=== PATIENT | female | born 1930 | race Caucasian/White ===

== ENCOUNTER 2016-10-09 19:32 | Inpatient (IN) | payer MEDICARE ==
[~2016-10-09 19:32] MED LIST: ASPIRIN CHEWABL81 MG PO; AZITHROMYCIN 2250 MG PO; COREG 6.25MG6.25 MG PO; DEMADEX20 MG PO; DUONEB 2.5-0.5M1 AMP INH; FEOSOL325 MG PO; HYDRALAZINE25 MG PO; ISOSORBIDE MONO60 M1 PO; LANTUS **100 UNITS/ SQ; MELATONIN5 M2 PO; NOVOLOG VI100 UNIT/1 SQ; PHOSLO667 MG PO; PLAVIX75 MG PO; PRAVACHOL20 MG PO; REMERON15 MG PO; VITAMIN B-121000 MC1 PO; VITAMIN D50000 UNIT PO
[2016-10-09 20:21] LABS: BASOPHIL 0.5 % (0-2); EOSINOPHIL 3.9 % (0-7); HCT 35.4 % (37.0-47.0); HGB 11.3 g/dl (12.5-16.0); LYMPHOCYTE 22.4 % (15-48); MCH 29.4 pg (25.0-31.0); MCHC 31.9 g/dL (32.0-36.0); MCV 92.2 fL (78.0-100.0); MONOCYTE 7.4 % (0-12); MPV 11.9 fL (6.0-9.5); NEUTROPHIL 65.8 % (41-80); PLT 178 K/uL (150-400); RBC 3.84 M/uL (4.20-5.40); RDW 12.5 % (11.5-14.0)
[2016-10-09 20:39] LABS: BILIRUBIN - TOTAL 0.3 mg/dL (0.1-1.0); CREATININE 2.1 mg/dL (0.5-1.0); GLOBULIN (CALCULATION) 3.6 g/dL (2.2-4.2); TOTAL PROTEIN 7.6 g/dL (6.4-8.3)
[2016-10-09 22:18] LABS: BILIRUBIN NEGATIVE (NEGATIVE); BLOOD TRACE-INTACT Ery/uL (NEGATIVE); CLARITY HAZY (CLEAR); COLOR YELLOW (YELLOW); GLUCOSE (U) NORMAL (NORMAL); KETONE (U) NEGATIVE (NEGATIVE); LEUKOCYTES NEGATIVE Leu/uL (NEGATIVE); NITRITE NEGATIVE (NEGATIVE); PROTEIN 2+ mg/dL (NEGATIVE); SPECIFIC GRAVITY 1.025 (1.001-1.030); UROBILINOGEN 0.2 mg/dL (0.2-1.0)
[2016-10-09 22:27] LABS: BACTERIA 3+; URINARY RBC RARE
[2016-10-09 23:58] LABS: TROPONIN T 0.023 ng/mL
[2016-10-10 07:11] LABS: BASOPHIL 0.3 % (0-2); EOSINOPHIL 0.5 % (0-7); HCT 31.3 % (37.0-47.0); LYMPHOCYTE 16.2 % (15-48); MCH 29.3 pg (25.0-31.0); MCHC 31.9 g/dL (32.0-36.0); MCV 91.8 fL (78.0-100.0); MONOCYTE 10.1 % (0-12); MPV 11.2 fL (6.0-9.5); NEUTROPHIL 72.9 % (41-80); PLT 160 K/uL (150-400); RBC 3.41 M/uL (4.20-5.40); RDW 12.4 % (11.5-14.0); WBC 6.1 K/uL (4.0-10.5)
[2016-10-10 07:42] LABS: CKMB 3.94 ng/mL (0.97-4.94); TROPONIN T 0.074 ng/mL
[2016-10-10 07:44] LABS: CREATININE 2.2 mg/dL (0.5-1.0); MAGNESIUM 1.78 mg/dL (1.40-2.10); POTASSIUM 4.5 mmol/L (3.5-5.1)
[2016-10-10 14:11] LABS: CKMB 4.22 ng/mL (0.97-4.94)
[2016-10-10 14:25] LABS: TROPONIN T 0.126 ng/mL
[2016-10-11 02:18] LABS: BASOPHIL 0.5 % (0-2); EOSINOPHIL 0 % (0-7); HCT 29.1 % (37.0-47.0); HGB 9.3 g/dl (12.5-16.0); LYMPHOCYTE 15.9 % (15-48); MCH 29.4 pg (25.0-31.0); MCV 92.1 fL (78.0-100.0); MONOCYTE 2.1 % (0-12); MPV 11.5 fL (6.0-9.5); NEUTROPHIL 81.5 % (41-80); PLT 156 K/uL (150-400); RBC 3.16 M/uL (4.20-5.40); RDW 12.4 % (11.5-14.0)
[2016-10-11 02:22] LABS: WBC 3.8 K/uL (4.0-10.5)
[2016-10-11 02:37] LABS: CREATININE 2.6 mg/dL (0.5-1.0); MAGNESIUM 1.66 mg/dL (1.40-2.10); POTASSIUM 4.6 mmol/L (3.5-5.1)
[2016-10-12 04:10] LABS: BASOPHIL 0.2 % (0-2); EOSINOPHIL 0 % (0-7); HCT 29.2 % (37.0-47.0); HGB 9.2 g/dl (12.5-16.0); MCH 29.5 pg (25.0-31.0); MCHC 31.5 g/dL (32.0-36.0); MCV 93.6 fL (78.0-100.0); MONOCYTE 6.2 % (0-12); MPV 11.3 fL (6.0-9.5); NEUTROPHIL 84.6 % (41-80); PLT 156 K/uL (150-400); RBC 3.12 M/uL (4.20-5.40); RDW 12.7 % (11.5-14.0); WBC 5.8 K/uL (4.0-10.5)
[2016-10-12 04:31] LABS: MAGNESIUM 1.97 mg/dL (1.40-2.10); POTASSIUM 4.6 mmol/L (3.5-5.1)
[2016-10-12] MEDS ORDERED: PREDNISONE 10MG10 MG PO (12:31)
[2016-10-12] MEDS ORDERED: CALCIUM600 MG PO (12:31)
[2016-10-12] MEDS ORDERED: CEFDINIR300 MG PO (12:32)
[2016-10-12] MEDS ORDERED: MUCINEX 600MG600 MG PO (12:32)
== END 2016-10-12 13:02 | disposition home health service (06) | DRG 280 ==
LOC: FER 19:32 → FMS 10-10 01:25 → FTCU 10-10 15:15
PROVIDERS: Internal Medicine; ADMIT Internal Medicine
DX: I13.0 Hypertensive heart and chronic kidney disease with heart failure and stage 1 through stage 4 chronic kidney disease, or unspecified chronic kidney disease (principal); I50.33 Acute on chronic diastolic (congestive) heart failure; I21.4 Non-ST elevation (NSTEMI) myocardial infarction; J96.21 Acute and chronic respiratory failure with hypoxia; N18.4 Chronic kidney disease, stage 4 (severe); L89.311 Pressure ulcer of right buttock, stage 1; N17.9 Acute kidney failure, unspecified; J96.11 Chronic respiratory failure with hypoxia; E11.22 Type 2 diabetes mellitus with diabetic chronic kidney disease; N39.0 Urinary tract infection, site not specified; R53.81 Other malaise; G30.9 Alzheimer's disease, unspecified; F02.80 Dementia in other diseases classified elsewhere, unspecified severity, without behavioral disturbance, psychotic disturbance, mood disturbance, and anxiety; D63.1 Anemia in chronic kidney disease; I25.10 Atherosclerotic heart disease of native coronary artery without angina pectoris; B96.20 Unspecified Escherichia coli [E. coli] as the cause of diseases classified elsewhere; E78.5 Hyperlipidemia, unspecified; Z96.641 Presence of right artificial hip joint; Z99.81 Dependence on supplemental oxygen; I25.2 Old myocardial infarction; Z86.73 Personal history of transient ischemic attack (TIA), and cerebral infarction without residual deficits; Z79.4 Long term (current) use of insulin; Z79.899 Other long term (current) drug therapy; Z90.49 Acquired absence of other specified parts of digestive tract; Z83.6 Family history of other diseases of the respiratory system; Z80.1 Family history of malignant neoplasm of trachea, bronchus and lung; Z82.3 Family history of stroke
CPT/HCPCS: 36415; 71010; 71020; 80048; 80053; 81001; 82550; 82553; 82962; 83735; 83880; 84484; 85025; 85730; 87076; 87088; 87186; 87804; 87899; 93005; 94010; 94640; 94760; 94762; 97110; 97116; 97162; 97167; 97530; 97530-GP; 97535; G0378; J0456; J1644; J1815; J1940; J2930